=== PATIENT | male | born 1975 | race Hispanic/Latino ===

== ENCOUNTER 2019-10-03 15:19 | Emergency (ER) | payer SELFPAY ==
[2019-10-03 15:54] VITALS: O2SAT 97
[2019-10-03] MEDS ORDERED: TORAdol 30 mg Injection IV ONE (15:54)
[2019-10-03] MEDS ORDERED: TORAdol 30 mg Injection ONE ×2 (16:01→16:06)
[2019-10-03 16:27] LABS: Hematocrit 43.3 % (42-50); Hemoglobin 14.7 gm/dl (12.5-18.0); Mean Cell Volume 97.5 fl (78-100); Mean Corpuscular Hemoglobin 33.1 pg (26-32); Mean Corpuscular Hgb Concent. 33.9 g/dl (32-36); Mean Platelet Volume 10.8 fl (7.5-11.0); Platelet Count 180 K/mm3 (150-450); Red Blood Count 4.44 M/mm3 (4.1-5.6); Red Cell Distribution Width 13.1 % (11.5-14.0); White Blood Count 7.7 K/mm3 (4.0-10.5)
[2019-10-03 16:32] LABS: ALBUMIN 4.9 g/dL (3.5-5.0); ALKALINE PHOSPHATASE 69 U/L (38-126); ANION GAP 12.5 MEQ/L (5-15); BLOOD UREA NITROGEN 13 mg/dL (9-20); CHLORIDE 105 mmol/L (98-107); Calcium 9.2 mg/dL (8.4-10.2); Carbon Dioxide 26 mmol/L (22-30); Glucose 93 mg/dL (74-106); Potassium 3.9 mmol/L (3.5-5.1); SGOT/AST 33 U/L (17-59); SGPT/ALT 42 U/L (0-50); SODIUM 140 mmol/L (137-145); Total Protein 8.5 g/dL (6.3-8.2)
[2019-10-03 16:48] LABS: Group A Strep NEGATIVE (NEGATIVE)
[2019-10-03 16:49] LABS: INFLUENZA A POSITIVE (NEGATIVE); INFLUENZA B NEGATIVE (NEGATIVE); RESPIRATORY SYNCTIAL VIRUS NEGATIVE (Negative)
--- NOTE | 2019-10-03 16:56 | ERPHSYRPT ---
- History of Present Illness Time Seen by Provider: 10/03/19 15:41 Source: patient, family Exam Limitations: language barrier Patient Subjective Stated Complaint: c/o cough, body aches, headache, fever off and on for many days. Triage Nursing Assessment: patient alert, face color flush, no resp distress, no cough noted at this time, walked in, States symptoms present today. Unable to communicate very well, does no speak lux[place]ish and no shipping associate available at this time. Physician History: 44 years old [place] male presented in the ER with subjective fever chills, generalized body aches, headache, nasal congestion and mild cough. No vomiting or diarrhea. No neck stiffness. Timing/Duration: today Cough Quality/Degree: moderate, dry cough Possible Cause: no prior episodes Modifying Factors: Improves With: activity, coughing Associated Symptoms: fever, chills, chest pain/soreness, cough, headache, muscle aches, nasal congestion, sore throat, No shortness of breath Hx Tetanus, Diphtheria Vaccination/Date Given: (Unknown) - Review of Systems Constitutional: Fever, Chills, Fatigue, Malaise Eyes: No Symptoms Ears, Nose, & Throat: Nose Congestion, Throat Pain Respiratory: Cough Cardiac: No Symptoms Abdominal/Gastrointestinal: No Symptoms Musculoskeletal: Myalgias Skin: No Symptoms Neurological: No Symptoms Psychological: No Symptoms Endocrine: No Symptoms Hematologic/Lymphatic: No Symptoms - Past Medical History Pertinent Past Medical History: No - Social History Smoking Status: Never smoker Exposure to second hand smoke: No Drug Use: none Patient Lives Alone: No - Nursing Vital Signs Nursing Vital Signs: Initial Vital Signs Temperature 99.3 F 10/03/19 15:35 Pulse Rate 98 H 10/03/19 15:35 Respiratory Rate 20 10/03/19 15:35 Blood Pressure 145/94 10/03/19 15:35 O2 Sat by Pulse Oximetry 97 10/03/19 15:35 Pain Scale Pain Intensity 10 - Physical Exam General Appearance: no apparent distress, alert Eye Exam: other (Left eye corneal abrasion) Ears, Nose, Throat Exam: moist mucous membranes, pharyngeal erythema Neck Exam: normal inspection, non-tender, supple, full range of motion Respiratory Exam: normal breath sounds, lungs clear, No chest tenderness Cardiovascular Exam: regular rate/rhythm, normal heart sounds, normal peripheral pulses Gastrointestinal/Abdomen Exam: soft, normal bowel sounds, No tenderness Back Exam: normal inspection, normal range of motion Extremity Exam: normal inspection, normal range of motion Neurologic Exam: alert, oriented x 3, cooperative, performance manager II-XII nml as tested, normal mood/affect Skin Exam: normal color SpO2 Interpretation: normal SpO2: 97 O2 Delivery: Room Air - Course Nursing assessment & vital signs reviewed: Yes Ordered Tests: Active Orders 24 hr Category Date Time Status IV Insertion STAT Care 10/03/19 16:17 Active Saline Lock STAT Care 10/03/19 15:55 Active CHEST 2 VIEWS (PA AND LAT) Stat Exams 10/03/19 17:24 Taken CBC Stat Lab 10/03/19 16:05 Completed CMP Stat Lab 10/03/19 16:05 Completed Lactic Acid Stat Lab 10/03/19 15:56 Completed Medication Summary Discontinued Medications Generic Name Dose Route Start Last Admin Trade Name Freq PRN Reason Stop Dose Admin Ketorolac Tromethamine 30 mg 10/03/19 15:54 10/03/19 16:15 Toradol 30 Mg Injection IV 10/03/19 15:55 30 mg STAT ONE Administration Ketorolac Tromethamine Confirm 10/03/19 16:01 Toradol 30 Mg Injection Administered 10/03/19 16:02 Dose 30 mg .ROUTE .STK-MED ONE Ketorolac Tromethamine Confirm 10/03/19 16:06 Toradol 30 Mg Injection Administered 10/03/19 16:07 Dose 30 mg .ROUTE .STK-MED ONE Oseltamivir Phosphate 75 mg 10/03/19 16:57 10/03/19 17:00 Tamiflu 75mg Capsule PO 10/03/19 16:58 75 mg STAT ONE Administration Oseltamivir Phosphate Confirm 10/03/19 16:59 Tamiflu 75mg Capsule Administered 10/03/19 17:00 Dose 75 mg PO .STK-MED ONE Lab/Rad Data: Laboratory Result Diagrams 10/03/19 16:05 10/03/19 16:05 Laboratory Results 10/03/19 10/03/19 10/03/19 Range/Units 16:05 16:05 16:05 WBC 7.7 (4.0-10.5) K/mm3 RBC 4.44 (4.1-5.6) M/mm3 Hgb 14.7 (12.5-18.0) gm/dl Hct 43.3 (42-50) % MCV 97.5 (78-100) fl MCH 33.1 H (26-32) pg MCHC 33.9 (32-36) g/dl RDW 13.1 (11.5-14.0) % Plt Count 180 (150-450) K/mm3 MPV 10.8 (7.5-11.0) fl Sodium 140 (137-145) mmol/L Potassium 3.9 (3.5-5.1) mmol/L Chloride 105 (98-107) mmol/L Carbon Dioxide 26 (22-30) mmol/L Anion Gap 12.5 (5-15) MEQ/L BUN 13 (9-20) mg/dL Creatinine 0.90 (0.66-1.25) mg/dL Estimated GFR > 60.0 ML/MIN Glucose 93 (74-106) mg/dL Lactic Acid (0.4-2.0) Calcium 9.2 (8.4-10.2) mg/dL Total Bilirubin 0.90 (0.2-1.3) mg/dL AST 33 (17-59) U/L ALT 42 (0-50) U/L Alkaline Phosphatase 69 (38-126) U/L Serum Total Protein 8.5 H (6.3-8.2) g/dL Albumin 4.9 (3.5-5.0) g/dL Influenza Type A Ag POSITIVE (NEGATIVE) Influenza Type B Ag NEGATIVE (NEGATIVE) RSV (PCR) NEGATIVE (Negative) Group A Strep Antibody NEGATIVE (NEGATIVE) 10/03/19 Range/Units 15:56 WBC (4.0-10.5) K/mm3 RBC (4.1-5.6) M/mm3 Hgb (12.5-18.0) gm/dl Hct (42-50) % MCV (78-100) fl MCH (26-32) pg MCHC (32-36) g/dl RDW (11.5-14.0) % Plt Count (150-450) K/mm3 MPV (7.5-11.0) fl Sodium (137-145) mmol/L Potassium (3.5-5.1) mmol/L Chloride (98-107) mmol/L Carbon Dioxide (22-30) mmol/L Anion Gap (5-15) MEQ/L BUN (9-20) mg/dL Creatinine (0.66-1.25) mg/dL Estimated GFR ML/MIN Glucose (74-106) mg/dL Lactic Acid 0.7 (0.4-2.0) Calcium (8.4-10.2) mg/dL Total Bilirubin (0.2-1.3) mg/dL AST (17-59) U/L ALT (0-50) U/L Alkaline Phosphatase (38-126) U/L Serum Total Protein (6.3-8.2) g/dL Albumin (3.5-5.0) g/dL Influenza Type A Ag (NEGATIVE) Influenza Type B Ag (NEGATIVE) RSV (PCR) (Negative) Group A Strep Antibody (NEGATIVE) - Progress Progress: re-examined Air Movement: good Progress Note: 10/03/19 16:51 Patient does have influenza A, started on Tamiflu. Notable work-up in the ER otherwise. On Toradol and feeling better on reevaluation. Recommended taking Tylenol/ibuprofen as needed for generalized body aches and outpatient follow-up. Blood Culture(s) Obtained: No Antibiotics given: No Counseled pt/family regarding: lab results, diagnosis, need for follow-up, rad results - Departure Departure Disposition: Home Clinical Impression: Influenza A Condition: Stable Critical Care Time: No Referrals: JESS ORTEGA DO [ACTIVE STAFF] - Instructions: Flu, Adult (DC) Additional Instructions: Take Tylenol/ibuprofen alternate for fever/body ache every 4-6 hourly. Drink plenty of fluids. Continue with Tamiflu. Follow-up with primary care for reevaluation. Return to ER for any worsening. Prescriptions: Ibuprofen 600 mg PO Q6HPRN PRN 10 Days #20 tablet PRN Reason: Pain Oseltamivir 75 mg [Tamiflu 75MG Capsule] 75 mg PO BID #9 cap
[2019-10-03] MEDS ORDERED: Tamiflu 75MG Capsule PO ONE ×2 (16:57→16:59)
[2019-10-03 17:26] VITALS: BP 125/83; PULSE 84
--- NOTE | 2019-10-03 20:03 | XRAY ---
Indication: Influenza. Comparison: None AP/lateral chest demonstrates mild right hemidiaphragm elevation with right mid to lower lung subsegmental atelectasis/scarring. Remaining heart, lungs, and bony thorax are unremarkable.
== END 2019-10-03 17:29 | disposition home or self-care (01) ==
LOC: ED 15:19
DX: J09.X2 Influenza due to identified novel influenza A virus with other respiratory manifestations (principal)
CPT/HCPCS: 36000; 36415; 71046; 80053; 83605; 85027; 87631; 87651; 96374; 99284; J1885; A9270-GY